=== PATIENT | female | born 1995 | race Caucasian/White ===

== ENCOUNTER 2018-09-07 23:01 | Inpatient (IN) ==
[2018-09-07] MEDS ORDERED: LACTATED RINGER'S 1,000 ML IV PRN (23:19)
[2018-09-07] MEDS ORDERED: OXYTOCIN 30 UNITS/500 ML BAG IV PRN (23:19)
--- NOTE | 2018-09-07 23:30 | Obstetrical Progress Note ---
Date of Service September 07, 2018 Physical Exam Physical Exam: Admit Note 23 F P0000 at 39 weeks admitted with SROM clear fluid at 9PM tonight. GBS is negative. FHT Cat 1. Exam reveals grossly ruptured clear fluid Nitrazine positive. Cervix 1/60/-3/anterior/soft/vertex. Will admit and obtain urine tox screen due to history of previous drug use. Will ambulate. Patient planning unmedicated . Results & Data Vital Signs (Past 12 Hours) Vital Signs Pulse BP 09/07/18 23:15 93 H 128/61
[2018-09-07 23:42] LABS: Hematocrit (blood only) 35.2 % (37-47); Hemoglobin 12.2 g/dL (12.0-16.0); Mean Corpuscular Volume 89.6 fL (80-100); Mean Platelet Volume 10.1 fL (7.4-10.4); Platelet Count 211 K/uL (130-400); RDW Coefficient of Variation 13.2 % (11.5-14.5); RDW Standard Deviation 43.7 fL (36.4-46.3); Red Blood Count 3.93 M/uL (4.2-5.4); White Blood Count 11.37 K/uL (4.8-10.8)
[2018-09-07 23:52] LABS: Mean Corpuscular Hgb Conc 34.7 g/dL (32-36)
[2018-09-08 00:30] LABS: Amphetamines+Metham, Urine Neg (Neg); Barbiturates, Urine Neg (Neg); Benzodiazepine, Urine Neg (Neg); Cocaine, Urine Neg (Neg); MDMA (Ecstacy), Urine Neg (Neg); Methadone, Urine Neg (Neg); Opiate, Urine Neg (Neg); Phencyclidine, Urine Neg (Neg)
[2018-09-08] MEDS ORDERED: BUTORPHANOL TARTRATE 2 MG/ML VIAL IV PRN (06:21)
[2018-09-08] MEDS: LACTATED RINGER'S 1,000 ML IV SCH ×3 (06:48→15:26)
[2018-09-08] MEDS ORDERED: OXYTOCIN 30 UNITS/500 ML BAG IV PRN ×2 (07:26→15:42)
[2018-09-08] MEDS ORDERED: LACTATED RINGER'S 1,000 ML IV PRN (07:26)
--- NOTE | 2018-09-08 07:26 | Obstetrical Progress Note ---
Date of Service September 08, 2018 Subjective Patient is seen and examined I got sig out from Dr Riley who admitted her for SROM at 2100 Reviewed records, PMH No pertinents except smoking GBS negative She asked for expectant management, declined epidural Received Stadol for pain Her cervix changed from 1 cm to 3/100%/-2 vertex (my exam) FHR had been categ I, decreased variability since IV Stadol was given [place]: ctxs q 2-5 min Discussed augmentation of ctxs with Pitocin if no change or ctxs will space out She agreed All questions were answered Continue to monitor Results & Data Vital Signs (Past 12 Hours) Vital Signs Temp Pulse Resp BP 09/08/18 07:06 77 18 108/61 09/08/18 06:51 71 117/63 09/08/18 06:41 36.7 C 18 09/08/18 06:30 36.7 C 09/08/18 04:17 85 121/85 09/08/18 04:15 36.9 C 20 09/08/18 02:05 36.6 C 18 09/07/18 23:48 36.8 C 93 H 18 128/61 09/07/18 23:16 36.8 C 18 09/07/18 23:15 93 H 128/61
[2018-09-08] MEDS ORDERED: ONDANSETRON INJ 2 MG/ML 2 ML VIAL IV PRN (08:45)
--- NOTE | 2018-09-08 10:11 | Obstetrical Progress Note ---
Date of Service September 08, 2018 Subjective FHR had decels, some early, some variable and some late Stopped pitocin and IVF bolus running VE; 5/ 90%/ 0, head lower and pushing on cervix scalp stimulation> FHR accel Better variability Continue to monitor closely Anticipate Results & Data Vital Signs (Past 12 Hours) Vital Signs Temp Pulse Resp BP 09/08/18 09:56 79 134/79 09/08/18 08:53 69 16 116/65 09/08/18 08:10 36.7 C 80 18 109/59 L 09/08/18 07:06 77 18 108/61 09/08/18 06:51 71 117/63 09/08/18 06:41 36.7 C 18 09/08/18 06:30 36.7 C 09/08/18 04:17 85 121/85 09/08/18 04:15 36.9 C 20 09/08/18 02:05 36.6 C 18 09/07/18 23:48 36.8 C 93 H 18 128/61 09/07/18 23:16 36.8 C 18 09/07/18 23:15 93 H 128/61
--- NOTE | 2018-09-08 13:18 | Obstetrical Progress Note ---
Date of Service September 08, 2018 Subjective Patient is reevaluated She has been feeling pressure with ctxs She has not had anything for pain since 7 am Her nurse, Janae was checking her, cervix 9/ 100%/ +2 She voided by her own about 150 ml FHR categ I [place] ctxs q 2-3 min, pitocin had been off Continue to monitor closely Results & Data Vital Signs (Past 12 Hours) Vital Signs Temp Pulse Resp BP Pulse Ox 09/08/18 13:06 72 92 09/08/18 13:03 68 97 09/08/18 12:58 63 96 09/08/18 12:53 98 H 97 09/08/18 12:48 79 98 09/08/18 12:43 71 96 09/08/18 12:38 65 97 09/08/18 12:37 92 H 92 09/08/18 12:33 66 97 09/08/18 12:28 64 97 09/08/18 12:23 69 97 09/08/18 12:18 64 97 09/08/18 12:13 36.8 C 62 18 128/72 98 09/08/18 12:08 67 97 09/08/18 12:03 72 96 09/08/18 11:58 63 97 09/08/18 11:53 74 97 09/08/18 11:48 70 97 09/08/18 11:43 68 97 09/08/18 11:38 82 98 09/08/18 11:33 82 99 09/08/18 11:23 84 99 09/08/18 11:18 74 97 09/08/18 11:13 80 98 09/08/18 11:07 85 97 09/08/18 11:02 73 100 09/08/18 10:57 90 18 121/67 97 09/08/18 10:52 91 H 98 09/08/18 10:47 70 97 09/08/18 10:42 76 99 09/08/18 10:37 80 98 09/08/18 10:32 85 100 09/08/18 10:27 80 100 09/08/18 10:22 76 100 09/08/18 10:17 75 100 09/08/18 10:12 76 99 09/08/18 10:07 79 100 09/08/18 09:56 37 C 79 18 134/79 09/08/18 08:53 69 16 116/65 09/08/18 08:10 36.7 C 80 18 109/59 L 09/08/18 07:06 77 18 108/61 09/08/18 06:51 71 117/63 09/08/18 06:41 36.7 C 18 09/08/18 06:30 36.7 C 09/08/18 04:17 85 121/85 09/08/18 04:15 36.9 C 20 09/08/18 02:05 36.6 C 18
[2018-09-08] MEDS ORDERED: ACETAMINOPHEN 325 MG TAB PO PRN (15:42)
[2018-09-08] MEDS ORDERED: SUPERCREAM 0.870% 15 GM JAR EXT PRN (15:42)
[2018-09-08] MEDS ORDERED: DIPHTHERIA/TETANUS/PERTUSSIS 0.5 ML SYR/VIAL IM ONE (15:42)
[2018-09-08] MEDS ORDERED: OXYCODONE/ACETAMINOPHEN 5mg/325mg TAB PO PRN (15:42)
[2018-09-08] MEDS ORDERED: HYDROCORTISONE ACETATE 25 MG SUPP PR PRN (15:42)
[2018-09-08] MEDS ORDERED: BENZOCAINE 20% AER SPR 82.5 GM CAN EXT PRN (15:42)
[2018-09-08] MEDS ORDERED: BISACODYL 10 MG SUPP PR PRN (15:42)
[2018-09-08] MEDS: IBUPROFEN 600 MG TAB PO PRN ×2 (16:48→21:39)
[2018-09-08] MEDS: DOCUSATE SODIUM 100 MG CAP PO SCH (21:38)
--- NOTE | 2018-09-08 22:20 | Delivery Summary ---
DATE OF OPERATION: 09/08/2018 TIME OF DELIVERY OF BABY: 1515 hours. TIME OF DELIVERY OF PLACENTA: 1527 hours. DETAILS OF DELIVERY: The patient was found to be fully dilated and desired to push. She was pushing and the heart rate was having prolonged decelerations to 70s to 80s with good variability and some occasions of 130s. Head was and there was a large caput on the scalp. Decision was made to open the right mediolateral episiotomy to speed up delivery. After that, head was delivered without difficulty. Shoulders were delivered with minimal traction and baby was handed off to the mother where mouth and nose were suctioned. Cord was clamped x2 and cut. The delivery was attended by professor of surgery, Dr. Santoyo. Cord blood was obtained. Then vagina and perineum were checked for any lacerations. There was only a right mediolateral episiotomy which was opened earlier. It was checked to be second degree by rectal exam. Excellent sphincter tone was noted. The perineal body muscles were held with Allis clamps. They were reapproximated with [id number] stitches x2 to reinforce them around sphincter muscles. Then with a different 2-0 Vicryl vaginal mucosa was repaired in a running fashion, bulbocavernous muscles were reapproximated and then skin in a subcuticular fashion. Excellent hemostasis was achieved. The placenta was found to be in the vagina, delivered spontaneous as intact and complete. Fundus was firm. Lower segment was cleared of all clots and debris. EBL was 200ML. Rest of the vagina and perineum were checked and they were intact and the rectal exam was repeated. Excellent sphincter tone was noted. No sutures felt in the rectum. Mom and baby tolerated the procedure well. Sponge, lap, and needle counts were correct x2. Baby was a viable male , Apgars 9/10, weight is 3154 gr. No complications happened and I was present during whole procedure. I attest to the content of the Intraoperative Record and any orders documented therein. Any exceptions are noted below. MTDD
[2018-09-09 07:13] LABS: Hematocrit (blood only) 32.7 % (37-47); Hemoglobin 11.3 g/dL (12.0-16.0); Mean Corpuscular Hgb Conc 34.6 g/dL (32-36); Mean Corpuscular Volume 89.8 fL (80-100); Mean Platelet Volume 10.2 fL (7.4-10.4); Platelet Count 195 K/uL (130-400); RDW Coefficient of Variation 13.5 % (11.5-14.5); RDW Standard Deviation 44.4 fL (36.4-46.3); Red Blood Count 3.64 M/uL (4.2-5.4); White Blood Count 13.27 K/uL (4.8-10.8)
[2018-09-09] MEDS: IBUPROFEN 600 MG TAB PO PRN ×4 (08:13→23:17)
[2018-09-09] MEDS: FERROUS SULFATE 325 MG TAB PO SCH (08:13)
[2018-09-09] MEDS: PRENATAL VITAMIN 1 TAB PO SCH (08:13)
[2018-09-09] MEDS: DOCUSATE SODIUM 100 MG CAP PO SCH ×2 (08:13→19:43)
--- NOTE | 2018-09-09 09:50 | Obstetrical Progress Note ---
Date of Service September 09, 2018 Assessment & Plan (1) normal course: PPd #1 Pt doing well Anticipate disch tomorrow Subjective Ambulation: ambulating normally Voiding: no voiding problems Passing Gas:: Yes Diet Tolerance:: regular diet Lochia:: Small Feeding Type:: breast feeding Review of Systems All systems reviewed & are unremarkable except as noted in HPI & below Physical Exam Vital Signs (Past 24 Hours) Last Vital Signs Temp 36.8 C 09/09/18 07:40 Pulse 74 09/09/18 07:40 Resp 18 09/09/18 07:40 BP 111/68 09/09/18 07:40 Pulse Ox 98 09/09/18 03:24 Constitutional WD/WN, vitals as above well developed and well nourished Eyes PERRL, conjunctivae normal, anicteric sclerae Neck trachea midline, no thyromegaly Respiratory normal respiratory effort, lungs clear to auscultation Auscultation: no crackles, no rales and no wheezes Cardiovascular RRR, no murmur, no edema Gastrointestinal (Abdomen) normal bowel sounds, soft, nontender, no hepatosplenomegaly Uterus is below umbilicus Musculoskeletal no cyanosis or clubbing, extremities motor strength 5/5 Skin no rashes, warm and dry Neurologic patellar DTR's 2+ bilat, sensation intact Psychiatric A+Ox3, euthymic affect Genitourinary normal external appearance
[2018-09-09] MEDS ORDERED: BISACODYL 5 MG TABEC PO SCH (20:00)
[2018-09-10 07:13] LABS: Hematocrit (blood only) 30.1 % (37-47); Hemoglobin 10.7 g/dL (12.0-16.0)
[2018-09-10] MEDS: PRENATAL VITAMIN 1 TAB PO SCH (08:12)
[2018-09-10] MEDS: DOCUSATE SODIUM 100 MG CAP PO SCH (08:12)
[2018-09-10] MEDS: FERROUS SULFATE 325 MG TAB PO SCH (08:13)
[2018-09-10] MEDS: IBUPROFEN 600 MG TAB PO PRN (08:13)
--- NOTE | 2018-09-10 09:37 | Obstetrical Progress Note ---
Date of Service September 10, 2018 Subjective doing fine passing gas/BM tolerating diet Physical Exam Constitutional: WD/WN, vitals as above comfortable Gastrointestinal (Abdomen): Percussion/Palpation: abdomen soft fundus firm no edema neg Navdeep's For d/c Home Results & Data Vital Signs (Past 12 Hours) Vital Signs Temp Pulse Resp BP BP Pulse Ox 09/10/18 07:00 36.8 C 66 18 113/70 97 09/09/18 23:10 36.5 C 68 18 117/71 98
== END 2018-09-10 12:25 | disposition home or self-care (01) | DRG 807 ==
LOC: OPB 23:01 → 4S1 23:07 → 4S2 09-08 18:05

== ENCOUNTER 2020-03-13 07:10 | Inpatient (IN) ==
[2020-03-13] MEDS ORDERED: OXYTOCIN 30 UNITS/500 ML BAG IV PRN ×2 (08:12→08:13)
[2020-03-13] MEDS ORDERED: LACTATED RINGER'S 1,000 ML IV PRN (08:12)
--- NOTE | 2020-03-13 08:19 | History & Physical Report ---
Date of Service March 13, 2020 Assessment & Plan (1) Post-term , 40-42 weeks of gestation: Admission and Anticipated Discharge Date Admission Date: March 13, 2020 History of Present Illness Primary Care Provider: NO PCP Patient is a 24-year-old -0-0-1 at 40 weeks and 4 days of gestation who is being admitted for scheduled induction of labor for postdates. Patient has no complaints, denies contractions, leakage of fluid, vaginal bleeding, fever chills, chest pain shortness of breath, headaches change in her vision, nausea or vomiting. Reports good movements. Her has been uncomplicated except she has been smoking throughout this . 10 cigarettes/day. GBS is negative, coronavirus testing was negative. Allergies Allergy/AdvReac Type Severity Reaction Status Date / Time No Known Allergies Allergy Unverified 09/08/18 00:30 Home Medications Home Medications Medication Instructions Recorded Confirmed Type vit no.[id number] 1 tab PO DAILY 03/13/20 03/13/20 History [ Vitamin] Patient History Surgical History [place] teeth extracted Social History Smoking Status: Current every day smoker Cigarettes Per Day: 10; Second Hand Exposure: No; Do You Dip or Chew Tobacco: No; Hx Alcohol Use: No Hx Substance Use: No Preferred Language: Portuguese Communication Ability: Effective Paper Final Inspector Required: No Beliefs That Will Affect Care: None marital status: Single Current Living Situation: Spouse Other Information That Helps Us Care for You: No Feels Safe at Home: Yes Safety Concerns: Feels Safe At This Time Assistive Devices: None OB History Full-term on September 08, 2018, by myself without complications. Patient did not receive epidural for pain. [employer] History Denies any history of STDs, chlamydia, gonorrhea, genital herpes. Review of Systems All systems reviewed & are unremarkable except as noted in HPI & below Physical Exam Constitutional: WD/WN, vitals as above well developed Operative resting in bed. Gastrointestinal (Abdomen): normal bowel sounds, soft, nontender, no hepatosplenomegaly (gravid) Genitourinary: normal external appearance OB Exam Abdomen: + vertex Manual OB Exam: + cervical dilation 3 cm, + cervical effacement 30% and + station -2 OB Exam Monitor Tracing: + external uterine monitor used and + category I Results & Data ([facility]) Vital Signs (Past 12 Hours) Vital Signs Pulse BP 03/13/20 07:46 81 114/58 L
[2020-03-13] MEDS ORDERED: CITRIC ACID/SODIUM CITRATE 15 ML UDC ONE (08:59)
[2020-03-13] MEDS ORDERED: ceFAZolin 2000MG 2,000 MG/15 ML SYR IV ONE ×2 (09:10→17:00)
[2020-03-13] MEDS ORDERED: fentaNYL citrate 100 MCG/2 ML VIAL ONE ×2 (09:15→09:42)
--- NOTE | 2020-03-13 09:27 | Anesthesiology Consultation ---
Date of Service March 13, 2020 Assessment & Plan (1) Encounter for pre-operative examination: Chart Review Chart Review: Acceptable Risk for Surgery and Patient NOT seen in Pre Admission Testing Consults Requested none History Height/Weight Height: 5 ft 3 in Weight: 63.049 kg Allergies Allergy/AdvReac Type Severity Reaction Status Date / Time No Known Allergies Allergy Unverified 09/08/18 00:30 Medications Home Medications Medication Instructions Recorded Confirmed Last Taken vit no.[id number] 1 tab PO DAILY 03/13/20 03/13/20 03/13/20 [ Vitamin] Past Medical History no chronic health issues Exercise / Class Metabolic Activity II 4-5 Yardwork/Stairs/Walk up hill Past Surgical History Surgical History [place] teeth extracted Past Anesthesia History No Hx of Anesthesia Complications and No Family Hx of Anesthesia Complications History of PONV No Hx of PONV and No Hx of Motion Sickness Social History Smoking Status: Current every day smoker tobacco type: cigarettes Smoking cigarettes per day: 10 Do You Dip or Chew Tobacco: No Hx Alcohol Use: No Hx Substance Use: No substance use type: does not use Last Used Substance: Unknown Last Used Substance Other:: was in patients chart used in 2018 Physical Exam Vital Signs Last Vital Signs Pulse 73 03/13/20 08:56 Resp 18 03/13/20 07:55 BP 106/58 L 03/13/20 08:52 Pulse Ox 100 03/13/20 08:56
[2020-03-13] MEDS ORDERED: MoRPHine SULFATE 2 MG/ML CARP IV PRN (09:29)
[2020-03-13] MEDS ORDERED: diphenhydrAMINE 50 MG/ML VIAL IV PRN ×2 (09:29→10:20)
[2020-03-13] MEDS ORDERED: PROMETHAZINE HCL 25 MG in SODIUM CHLORIDE 0.9% 50 ML IV PRN ×2 (09:29→10:20)
[2020-03-13] MEDS ORDERED: ONDANSETRON INJ 2 MG/ML 2 ML VIAL IV PRN ×2 (09:29→10:20)
[2020-03-13] MEDS ORDERED: ePHEDrine sulfate 50 MG/ML AMP IV PRN (09:29)
[2020-03-13] MEDS ORDERED: SODIUM CHLORIDE 0.9% 1000ML 1,000 ML IV SCH (09:30)
[2020-03-13] MEDS ORDERED: PROPOFOL IV EMULSION 10 MG/ML 20 ML VIAL IV ONE (09:54)
[2020-03-13] MEDS ORDERED: ONDANSETRON INJ 2 MG/ML 2 ML VIAL ONE (09:54)
[2020-03-13] MEDS ORDERED: OXYTOCIN 10 UNITS/ML VIAL ONE (09:54)
[2020-03-13] MEDS ORDERED: DEXAMETHASONE SOD INJ 4 MG/ML VIAL ONE (09:54)
[2020-03-13] MEDS ORDERED: PHENYLEPHRINE 100MCG/ML 5ML SYR ONE (09:54)
[2020-03-13] MEDS ORDERED: SUCCINYLCHOLINE CHLORIDE 20 MG/ML 10 ML VIAL IV ONE (09:54)
--- NOTE | 2020-03-13 09:59 | XRay Report ---
KUB CLINICAL HISTORY: INSTRUMENT COUNT COMPARISON STUDY: None. FINDINGS: No unexpected radiopaque foreign bodies are identified. A density projecting over the lower abdomen and pelvis likely reflects an enlarged uterus, as expected. IMPRESSION: No unexpected radiopaque foreign bodies. ACT 112: Negative or not required by law. Electronically signed by: Lionel Garcia M.D. 03/13/2020 9:58 AM
--- NOTE | 2020-03-13 10:12 | Obstetrical Progress Note ---
Date of Service March 13, 2020 Assessment & Plan Admission and Anticipated Discharge Date Admission Date: March 13, 2020 Subjective Late entry from 8:55 AM heart rate was found to be 60s to 70s, confirmed with bedside ultrasound. IV fluids bolus and nasal oxygen were already started. No recovery from prolonged deceleration Patient was verbally consented for emergency and taken to the OR. heart rate was at 110 in the OR when we were getting ready. Anesthesia was in the room and she delivered a viable infant, cried immediately, noted to have nuchal cord around the neck right shoulder and arm. See dictated op note for details. Results & Data ([facility]) Vital Signs (Past 12 Hours) Vital Signs Pulse Resp BP Pulse Ox 03/13/20 08:56 73 100 03/13/20 08:52 70 106/58 L 03/13/20 07:55 18 03/13/20 07:46 81 114/58 L
[2020-03-13] MEDS ORDERED: SUPERCREAM 0.870% 15 GM JAR EXT PRN (10:20)
[2020-03-13] MEDS ORDERED: DIPHTHERIA/TETANUS/PERTUSSIS 0.5 ML SYR/VIAL IM ONE (10:20)
[2020-03-13] MEDS ORDERED: SENNA 8.6 MG TAB PO PRN (10:20)
[2020-03-13] MEDS ORDERED: KETOROLAC 30 MG/ML VIAL IV PRN (10:20)
[2020-03-13] MEDS ORDERED: MEASLES, MUMPS & RUBELLA VIRUS VIAL SQ ONE (10:20)
[2020-03-13] MEDS ORDERED: BENZOCAINE 20% AER SPR 82.5 GM CAN EXT PRN (10:20)
[2020-03-13] MEDS ORDERED: MAGNESIUM HYDROXIDE SUSP 30 ML UDC PO PRN (10:20)
[2020-03-13] MEDS ORDERED: diphenhydrAMINE Capsule 25 MG CAP PO PRN (10:20)
[2020-03-13] MEDS ORDERED: HYDROCORTISONE ACETATE 25 MG SUPP PR PRN (10:20)
--- NOTE | 2020-03-13 10:24 | Post Operative Brief Note ---
Immediate Post Op Note v1 Date of Surgery March 13, 2020 Pre & Post Diagnosis Operation Date: 03/13/20 08:55 <No data on this case meets the specified criteria> I identified the patient and participated in the time-out.: Yes Procedure Operation Date: 03/13/20 08:55 <No data on this case meets the specified criteria> Emergency Csection Surgeon Dionte Fishman MD C Engineer Kortney Chisholm RN Estimated Blood Loss 600 Findings Consistent with Post-Op Diagnosis Drains Acuña Catheter Anesthesia Type General Complications none Disposition Accompanied Patient To Recovery: Yes Disposition: L&D
--- NOTE | 2020-03-13 10:27 | Anesthesiology Progress Note ---
Date of Service March 13, 2020 Anesthesia Post Procedure Vital Signs Vital Signs: Pulse Resp BP Pulse Ox 03/13/20 10:23 54 L 100 03/13/20 10:18 59 L 99 03/13/20 10:16 57 L 119/67 03/13/20 10:14 60 131/69 03/13/20 10:13 62 99 03/13/20 08:56 73 100 03/13/20 08:52 70 106/58 L 03/13/20 07:55 18 03/13/20 07:46 81 114/58 L Transfer of Care Handoff Completed per policy Notes Mental Status: alert / awake / arousable and participated in evaluation Patient Amnestic to Procedure: Yes Nausea / Vomiting: adequately controlled Pain: adequately controlled Airway Patency, RR, SpO2: stable & adequate BP & HR: stable & adequate Hydration State: stable & adequate Anesthetic Complications: no major complications apparent and Pt Satisfied with anesthetic care
[2020-03-13] MEDS ORDERED: LACTATED RINGER'S 1,000 ML IV SCH (10:30)
[2020-03-13 10:36] LABS: Base Excess Cord Venous Blood -3.1 mEq/L (-7.7-1.9); CO2 Cord Arterial Blood 61 mmHg (39.1-73.5); Cord Venous Blood HCO3 26 mmol/L (18.4-26.8); Cord Venous Blood PCO2 62 mmHg (30.4-57.2); Cord Venous Blood PO2 26 mmHg (14.1-43.3); Cord Venous Blood pH 7.24 (7.20-7.44); HCO3 Cord Arterial Blood 26 mmol/L (19.7-28.5); O2 Saturation Cord Venous Bld < 60.0 % (<68); Oxygen Sat Cord Arterial Blood < 60.0 % (<60); PO2 Cord Arterial Blood 17 mmHg (4.1-31.7); pH Cord Arterial Blood 7.24 (7.1-7.38)
[2020-03-13] MEDS: KETOROLAC 30 MG/ML VIAL IV PRN ×2 (10:37→17:24)
[2020-03-13] MEDS: MEPERIDINE HCL 25 MG/ML CARP/VIAL IV PRN ×2 (11:14→12:07)
[2020-03-13] MEDS: OXYTOCIN 20 UNITS in LACTATED RINGER'S 1,000 ML IV SCH ×2 (13:18→21:08)
[2020-03-13] MEDS: SIMETHICONE 80 MG CHEW PO SCH ×3 (13:41→20:22)
--- NOTE | 2020-03-13 13:55 | Operative Report (OR) ---
DATE OF OPERATION: 03/13/2020 PREOPERATIVE DIAGNOSIS: The patient is a 24-year-old G2, P1-0-0-1 at 40 weeks and 4 days of gestation, admitted for induction of labor, prolonged heart rate deceleration to 60s/70s before start of induction, has not responded to intra uterine resuscitation. POSTOPERATIVE DIAGNOSES: Same and nuchal cord around neck, body and right arm. PROCEDURE: Emergency primary low transverse with Pfannenstiel skin incision. SURGEON: Dionte Fishman MD PROTECTIVE SERVICES CASE WORKER: Kortney Chisholm RN, labor and delivery nurse. ESTIMATED BLOOD LOSS: 600 mL DRAINS: Acuña catheter drained 150 mL of clear urine. ANESTHESIA: General endotracheal. ANESTHESIOLOGIST: Dr. Key. COMPLICATIONS: None. FINDINGS: Baby was a viable female delivered at 9:11 a.m. Apgars were 8/9, weight was 3100 grams. Baby was in cephalic presentation. There was a nuchal cord around the neck, right shoulder and arm and a normal uterus, fallopian tubes and ovaries. DESCRIPTION OF PROCEDURE: The patient was taken to the operating room where she was placed in dorsal supine position and Acuña catheter was inserted. She was prepped and draped. General anesthesia was given without difficulty and the skin was incised with the scalpel and fat tissue was also incised easily. Fascia was incised in the midline and incision was extended laterally with the help of Morgan scissors. Upper and lower aspect of the fascial incisions were dissected off bluntly and sharply with Morgan scissors. Rectus muscles were bluntly. Peritoneum was entered bluntly. Bladder blade was inserted. Vesicouterine peritoneum was grasped, entered sharply with Metzenbaum scissors and bladder blade was inserted. Uterus was incised in transverse fashion. Membranes were ruptured. Clear fluid was obtained. Head was delivered without difficulty. Shoulders were delivered with minimal traction. The cord around the neck, shoulder was reduced, it was a long cord. Baby's mouth and nose were suctioned. Baby was crying and moving vigorously. Cord was clamped x2 and cut. Baby was given to the pediatric team, Dr. Vallejo. Cord blood was obtained. Placenta was delivered manually as intact and complete. Uterus was exteriorized, cleared of all clots and debris. Uterine incision was repaired with 0 Vicryl in a running locked fashion and a second imbricating layer was placed with 0 Vicryl in a running locked fashion. Excellent hemostasis was achieved. Cul-de-sac was irrigated with warm normal saline and suctioned. Uterus was returned to the abdomen. The pelvis was irrigated with warm normal saline and suctioned. There was oozing in the middle of the incision which was repaired with 0 Vicryl with [id number] stitches x2. It was hemostatic. The pelvis was irrigated with warm normal saline and suctioned. Incision was checked to be again hemostatic. Parietal peritoneum with the rectus muscles were repaired with 2-0 chromic in a running fashion and the rectus muscles and under the fascia was hemostatic and the rectus fascia was reapproximated with 0 Vicryl in a running fashion. Subcuticular fat tissue was brought together with 3-0 Vicryl in a running fashion. Skin was closed with 4-0 Monocryl in a running fashion. No complications happened. I was present during whole procedure. At the end of the procedure, sponge, lap, needle and instrument count was correct x2. Due to the Emergency initial count was not done, x-ray was called to the room and abdominal pelvis x-ray was taken. No foreign object was noted in the x-ray and then procedure was ended. The patient was extubated carefully and successfully. She was taken to labor and delivery in stable condition. She was given 2 grams of cefazolin during surgery. I attest to the content of the Intraoperative Record and any orders documented therein. Any exceptions are noted below. ZENA
[2020-03-13] MEDS: MEPERIDINE HCL 50 MG/ML CARP IV PRN (18:27)
[2020-03-13] MEDS: DOCUSATE SODIUM 100 MG CAP PO SCH (20:22)
[2020-03-14] MEDS: MEPERIDINE HCL 50 MG/ML CARP IV PRN (04:42)
[2020-03-14 06:31] LABS: Basophils # (auto) 0.01 K/uL (0-0.2); Basophils % (auto) 0.1 %; Eosinophils # (auto) 0.06 K/uL (0-0.5); Eosinophils % (auto) 0.6 %; Hematocrit (blood only) 33.7 % (37-47); Hemoglobin 11.7 g/dL (12.0-16.0); Immature Granulocytes # (auto) 0.05 K/uL (0.00-0.02); Immature Granulocytes % (auto) 0.5 %; Lymphocytes # (auto) 1.92 K/uL (1.2-3.4); Lymphocytes % (auto) 18.4 %; Mean Corpuscular Hemoglobin 31.7 pg (25-34); Mean Corpuscular Hgb Conc 34.7 g/dL (32-36); Mean Corpuscular Volume 91.3 fL (80-100); Mean Platelet Volume 10.7 fL (7.4-10.4); Monocytes # (auto) 0.81 K/uL (0.11-0.59); Monocytes % (auto) 7.8 %; Neutrophils # (auto) 7.57 K/uL (1.4-6.5); Neutrophils % (auto) 72.6 %; Platelet Count 179 K/uL (130-400); RDW Coefficient of Variation 14.4 % (11.5-14.5); RDW Standard Deviation 47.8 fL (36.4-46.3); Red Blood Count 3.69 M/uL (4.2-5.4); White Blood Count 10.42 K/uL (4.8-10.8)
[2020-03-14] MEDS: PRENATAL VITAMIN 1 TAB PO SCH (08:45)
[2020-03-14] MEDS: SIMETHICONE 80 MG CHEW PO SCH ×4 (08:45→20:30)
[2020-03-14] MEDS: DOCUSATE SODIUM 100 MG CAP PO SCH ×2 (08:45→20:30)
[2020-03-14] MEDS: FERROUS SULFATE 325 MG TAB PO SCH (08:45)
[2020-03-14] MEDS: oxyCODONE/ACETAMINOPHEN 5mg/325mg TAB PO PRN ×4 (08:46→21:57)
[2020-03-14] MEDS: IBUPROFEN 600 MG TAB PO PRN ×4 (08:46→21:57)
--- NOTE | 2020-03-14 12:47 | Obstetrical Progress Note ---
Date of Service March 14, 2020 Assessment & Plan (1) delivery delivered: c/sec day #1 pt doing well no complaints anticipate disch tomorrow Subjective Ambulation: ambulating normally Voiding: no voiding problems Passing Gas:: Yes Diet Tolerance:: clear liquids Lochia:: Small Feeding Type:: breast feeding Review of Systems All systems reviewed & are unremarkable except as noted in HPI & below Physical Exam Constitutional WD/WN, vitals as above well developed and well nourished Eyes PERRL, conjunctivae normal, anicteric sclerae ENMT external ear and nose normal, oropharynx normal Neck trachea midline, no thyromegaly Respiratory normal respiratory effort, lungs clear to auscultation Cardiovascular RRR, no murmur, no edema Chest (Breasts) normal inspection/palpation of breasts Gastrointestinal (Abdomen) normal bowel sounds, soft, nontender, no hepatosplenomegaly Musculoskeletal no cyanosis or clubbing, extremities motor strength 5/5 Skin no rashes, warm and dry + incision (Clean,dry and intact) Neurologic patellar DTR's 2+ bilat, sensation intact Psychiatric A+Ox3, euthymic affect Genitourinary normal external appearance Lymphatic no cervical or axillary lymphadenopathy Results & Data ([facility]) Vital Signs (Past 12 Hours) Vital Signs Temp Pulse Resp BP Pulse Ox 03/14/20 11:30 37.1 C 71 16 103/61 97 03/14/20 08:25 37.4 C 62 18 104/64 100 03/14/20 03:50 36.8 C 78 16 107/64 96
[2020-03-14] MEDS ORDERED: bisacodyL 5 MG TABEC PO SCH (20:00)
[2020-03-15] MEDS: IBUPROFEN 600 MG TAB PO PRN ×2 (05:03→08:45)
[2020-03-15] MEDS: oxyCODONE/ACETAMINOPHEN 5mg/325mg TAB PO PRN ×2 (05:03→08:44)
[2020-03-15 06:07] LABS: Hematocrit (blood only) 32.4 % (37-47); Hemoglobin 10.6 g/dL (12.0-16.0)
[2020-03-15] MEDS: PRENATAL VITAMIN 1 TAB PO SCH (08:44)
[2020-03-15] MEDS: DOCUSATE SODIUM 100 MG CAP PO SCH (08:44)
[2020-03-15] MEDS: FERROUS SULFATE 325 MG TAB PO SCH (08:44)
[2020-03-15] MEDS: SIMETHICONE 80 MG CHEW PO SCH (08:45)
--- NOTE | 2020-03-15 09:28 | Obstetrical Progress Note ---
Date of Service March 15, 2020 Assessment & Plan Admission and Anticipated Discharge Date Admission Date: March 13, 2020 Subjective Patient is seen and examined. She feels well, no complaints. Pain is under control with oral meds. Ambulating without dizziness Voiding without difficulty Tolerating regular diet with out N&V Flatus BM neg Bleeding is minimal No fever/ chills/ CP/ SOB/ N&V/ Leg pain Breast feeding without problems Vital Signs Temp Pulse Resp BP Pulse Ox 03/15/20 07:35 37 C 74 18 117/73 98 03/15/20 01:00 36.6 C 79 18 107/65 Lab Results 03/13/20 03/13/20 03/14/20 Range/Units 09:11 09:11 06:14 WBC 10.42 (4.8-10.8) K/uL RBC 3.69 L (4.2-5.4) M/uL Hgb 11.7 L (12.0-16.0) g/dL Hct 33.7 L (37-47) % MCV 91.3 (80-100) fL MCH 31.7 (25-34) pg MCHC 34.7 (32-36) g/dL RDW Std Deviation 47.8 H (36.4-46.3) fL RDW Coeff of Marcio 14.4 (11.5-14.5) % Plt Count 179 (130-400) K/uL MPV 10.7 H (7.4-10.4) fL Immature Gran % (Auto) 0.5 % Neut % (Auto) 72.6 % Lymph % (Auto) 18.4 % Bledsoe % (Auto) 7.8 % Eos % (Auto) 0.6 % Baso % (Auto) 0.1 % Neut # (Auto) 7.57 H (1.4-6.5) K/uL Lymph # (Auto) 1.92 (1.2-3.4) K/uL Bledsoe # (Auto) 0.81 H (0.11-0.59) K/uL Eos # (Auto) 0.06 (0-0.5) K/uL Baso # (Auto) 0.01 (0-0.2) K/uL Immature Gran # (Auto) 0.05 H (0.00-0.02) K/uL Cord ABG pH 7.24 (7.1-7.38) Cord ABG pCO2 61 (39.1-73.5) mmHg Cord ABG pO2 17 (4.1-31.7) mmHg Cord ABG HCO3 26 (19.7-28.5) mmol/L Cord ABG Base Excess -3.0 (-9-1.8) mEq/L Cord ABG O2 Sat < 60.0 (<60) % Cord VBG pH 7.24 (7.20-7.44) Cord VBG pCO2 62 H (30.4-57.2) mmHg Cord VBG pO2 26 (14.1-43.3) mmHg Cord VBG HCO3 26 (18.4-26.8) mmol/L Cord VBG Base Excess -3.1 (-7.7-1.9) mEq/L Cord VBG O2 Sat < 60.0 (<68) % Barometric Pressure 739.2 739.1 mm/Hg Blood Gas Comments A INFANT A 03/15/20 Range/Units 05:52 WBC (4.8-10.8) K/uL RBC (4.2-5.4) M/uL Hgb 10.6 L (12.0-16.0) g/dL Hct 32.4 L (37-47) % MCV (80-100) fL MCH (25-34) pg MCHC (32-36) g/dL RDW Std Deviation (36.4-46.3) fL RDW Coeff of Marcio (11.5-14.5) % Plt Count (130-400) K/uL MPV (7.4-10.4) fL Immature Gran % (Auto) % Neut % (Auto) % Lymph % (Auto) % Bledsoe % (Auto) % Eos % (Auto) % Baso % (Auto) % Neut # (Auto) (1.4-6.5) K/uL Lymph # (Auto) (1.2-3.4) K/uL Bledsoe # (Auto) (0.11-0.59) K/uL Eos # (Auto) (0-0.5) K/uL Baso # (Auto) (0-0.2) K/uL Immature Gran # (Auto) (0.00-0.02) K/uL Cord ABG pH (7.1-7.38) Cord ABG pCO2 (39.1-73.5) mmHg Cord ABG pO2 (4.1-31.7) mmHg Cord ABG HCO3 (19.7-28.5) mmol/L Cord ABG Base Excess (-9-1.8) mEq/L Cord ABG O2 Sat (<60) % Cord VBG pH (7.20-7.44) Cord VBG pCO2 (30.4-57.2) mmHg Cord VBG pO2 (14.1-43.3) mmHg Cord VBG HCO3 (18.4-26.8) mmol/L Cord VBG Base Excess (-7.7-1.9) mEq/L Cord VBG O2 Sat (<68) % Barometric Pressure mm/Hg Blood Gas Comments PE: General: Alert, orientedx3, NAD CVS: S1S2 RRR Lungs; CTAB Abd: soft, NT, ND, BS+, fundus firm, below Umbilicus Incision: Clean, dry, intact Perineum intact, Lochia rubra minimal Ext; NT, no edema AP: 24 yo s/p C Section, pod# 2 VSS Afebrile doing well Continue routine postop care Encourage ambulation, PO intake Desires d/c today Discussed when to call D/C home , f/u in office All questions were answered Results & Data ([facility]) Vital Signs (Past 12 Hours) Vital Signs Temp Pulse Resp BP Pulse Ox 03/15/20 07:35 37 C 74 18 117/73 98 03/15/20 01:00 36.6 C 79 18 107/65
[2020-03-15] MEDS ORDERED: bisacodyL 10 MG SUPP PR PRN (10:20)
--- NOTE | 2020-03-17 01:48 | Discharge Summary (DS) ---
DETAILS OF ADMISSION: The patient is a 24-year-old G2, P1-0-0-1 at 40 weeks and 4 days of gestation. She was admitted for scheduled induction of labor for postdates. She has no complaints on the day of admission. Vital signs were stable, afebrile. She denies any contractions, leakage of fluid, or vaginal bleeding. She reported good movements. Her has been uncomplicated except she has been smoking during this and while she is being admitted and getting ready to start induction, heart rate found to be at 60s-70s with a prolonged deceleration, it did not improve despite intrauterine resuscitation with IV fluid bolus, nasal oxygen and position change and scalp stimulation. She was taken to OR for emergency due to prolonged decelerations, not improving over time. She delivered a viable female at 9:11 a.m. Apgars were 8/9. There was a nuchal cord around the neck and body and arms. Her surgery was uncomplicated. See dictated op note for details. On postop period, the patient was doing well. Vital signs stable, afebrile. Urine output was adequate. On postop day #1, the patient was doing well. Vital signs stable, afebrile. Her physical exam was unremarkable. Incision was clean, dry and intact. She was tolerating clears. Bleeding was minimal. She was . She was ambulated, switched to a regular diet. On postop day #2, the patient was doing well. Vital signs stable, afebrile, tolerating regular diet, ambulating without problems, passing gas, without problems. Vital signs stable, afebrile. Her H and H was 10.6/32.4. She desired to be discharged home on postoperative day #2. Discharge instructions were given when to call, prescriptions were written for pain. She is to be seen in office in a week.
== END 2020-03-15 11:30 | disposition home or self-care (01) | DRG 788 ==
LOC: 4S1 07:10 → 4S2 13:25